=== PATIENT | male | born 1945 | race Caucasian/White ===

== ENCOUNTER 2017-03-22 18:20 | Inpatient (IN) | payer MEDICARE ==
[2017-03-22 20:16] VITALS: BP 119/86
[2017-03-22] MEDS ORDERED: Magnesium Hydroxide (MOM) 30 mL UDC PO PRN (20:18)
[2017-03-22] MEDS ORDERED: Maalox 30 mL Cup PO PRN (20:18)
[2017-03-23] MEDS: Multivitamin Tab PO SCH (09:13)
--- NOTE | 2017-03-23 22:32 | History & Physical ---
ADMIT DATE: 03/22/2017 REASON FOR ADMISSION: Psychiatric disorder. HISTORY OF PRESENT ILLNESS: This is a 71-year-old male, admitted to [facility] for underlying psychiatric illness by Dr. Vasquez. Dr. Vasquez requested medical H and P on this patient. The patient is complaining of the right groin area pain and swelling noticed for the past few weeks. Denies any nausea, vomiting, abdominal pain. No fever, no chills, no chest pain, no shortness of breath or other complaints. PAST MEDICAL HISTORY: The patient has a pacemaker in the past. PAST SURGICAL HISTORY: No significant past surgical history reported. SOCIAL HISTORY: The patient denies any alcohol, tobacco, or street drug use. CURRENT MEDICATIONS: As per the medication reconciliation is reviewed. ALLERGIES: No known drug allergies reported. REVIEW OF SYSTEMS: Right area groin pain. No fever, no chills. No headache, no chest pain, no shortness of breath, dizziness, palpitations or any other complaints. PHYSICAL EXAMINATION: VITAL SIGNS: Temperature 97.8, pulse 86, respirations 20, blood pressure 132/67. HEART: S1, S2 normal. LUNGS: Clear to auscultation. ABDOMEN: Soft, nontender. GENITOURINARY: Right inguinal hernia noted. NEUROLOGIC: The patient is awake, but somewhat confused, grossly nonfocal, moves all extremities, follows commands. AVAILABLE LABORATORY DATA: As per ____. ASSESSMENT: 1. Right inguinal hernia. 2. Pacemaker in place. 3. Psychiatric disorder. PLAN: We will obtain surgical consult for further evaluation of underlying inguinal hernia, Motrin will be given as needed for pain. Psych ____ per psychiatrist. The patient's condition ____ nursing staff. Thank you, Dr. Vasquez, for allowing me to participate in the care of this patient. JOB# [id number]
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
[2017-03-24] MEDS: Multivitamin Tab PO SCH (08:57)
--- NOTE | 2017-03-24 20:15 | Admit Criteria Form ---
Admit Criteria Forms - Admit Criteria Diagnosis: PSYCHIATRIC DISORDERS (Place 'X' for any and all applicable criteria): Ongoing inpatient care may be needed for 1 or more of the following(1)(2)(3)(4)( 6)(7)(8): [ ]I. Danger to self or others not manageable at lower level of care. [ ]II. Grave disability (eg, inability to perform self care necessary at lower level of care) [ ]III. Agitation or inappropriate behavior interfering with care for primary condition (eg, attempting to discontinue lines or drains prematurely, unable to cooperate with respiratory care) [X ]IV. Severe disability or disorder indicated by ALL of the following: [X ]a) Severe behavioral health disorder-related symptoms or condition indicated by 1 or more of the following: [ X]i) Severe problem with cognition, memory, judgment, or impulse control [X ]ii) Severe clinical manifestations (eg, hallucinations , delusions, other acute psychotic symptoms, lambert, extreme agitation or anxiety) [X ]b) Patient management at lower level of care is not feasible until acute intervention or modification is initiated. Extended stay beyond goal length of stay for the primary condition may be needed until ALLof the following are present(1)(2)(3)(4)(722)(23): [ ]a) Danger to self or others is absent or manageable at lower level of care [ ]b) Behavior crisis management, including physical or chemical restraints, is required and is not available at a lower level of care. [ ]c) Behavioral symptoms (e.g., agitation, somnolence, inappropriate behavior) are present, and are not manageable at a lower level of care. [ ]d) Patient cannot understand follow-up treatment and crisis plan. [ ]e) Provider and supports are sufficiently available at lower level of care. [ ]f) Patient can participate (e.g., verify absence of plan for harm) and is in needed of monitoring. The original [facility] content created by [facility] has been revised. The portions of the content which have been revised are identified through the use of italic text or in bold, and [facility] has neither reviewed nor approved the modified material. All other unmodified content is copyright [facility]. Please see references footnoted in the original [facility] edition 2017 Admit Criteria Met?: Yes
[2017-03-25] MEDS: Multivitamin Tab PO SCH (08:33)
--- NOTE | 2017-03-25 20:23 | Progress Notes ---
DATE: 03/25/2017 SUBJECTIVE: Chart reviewed and the patient interviewed. Also discussed the patient's condition with the staff and reviewed records and labs. The patient is still easily agitated and he is still in irritable and angry mood. The patient also still needs redirections. The patient also still has episodes of complaining of inguinal pain and the patient was evaluated by the surgeon and he will eventually need hernia surgery, but it will be postponed for the time being. The patient also is restless and he still needs lots of monitoring and because of confusion. Otherwise, the patient is compliant with taking his medications with no side effects of medications. ASSESSMENT: The patient is still psychotic and confused and needs close monitoring. TREATMENT PLAN: We will continue monitoring his behavior closely. Also, continue Seroquel in a dose of 25 mg twice a day and we will adjust the dose. Also, we will follow up with the surgeon to evaluate the need of surgery at the time being or it can be postponed. [facility]# [id number]
[2017-03-26] MEDS: Multivitamin Tab PO SCH (08:16)
--- NOTE | 2017-03-26 11:13 | History & Physical ---
ADMIT DATE: 03/25/2017 REFERRING PHYSICIAN: Dr. Vasquez. REASON FOR CONSULTATION: Right inguinal hernia. Thank you for referring this patient to me. This patient's deferred because of complaint of right inguinal pain. This apparently has been going on for a few weeks. The patient is admitted in [facility] for psychotic behavior, confusion. PHYSICAL EXAMINATION: GENERAL: Shows a large right inguinal hernia, which is reducible. It is tender. There is no incarceration present. IMPRESSION: Right inguinal hernia, reducible. RECOMMENDATIONS: When cleared by psychiatrist, we will schedule for surgery. JOB# [id number]
--- NOTE | 2017-03-26 21:50 | Progress Notes ---
DATE: 03/26/2017 SUBJECTIVE: Chart reviewed and the patient interviewed. Also, discussed the patient's condition with the staff and reviewed records and labs. The patient remains confused. Also, still have episodes of agitation and irritability. The patient also is still complaining of pain in the inguinal area and he is supposed to have hernia surgery. He also is still forgetful and still needs lots of redirections. Otherwise, the patient is compliant with taking his medications with no side effects of medications. ASSESSMENT: The patient is still psychotic and need close monitoring. TREATMENT PLAN: We will continue monitoring his behavior and condition closely. Also, continue Seroquel 25 mg twice a day and we will continue to follow up closely. [facility]# [id number]
[2017-03-27] MEDS: Multivitamin Tab PO SCH (08:40)
--- NOTE | 2017-03-27 12:15 | General Progress Note ---
Subjective - Review of Systems Service Date: 03/27/17 Events since last encounter: await Psych clearance for hernia repair Objective - Physical Exam Vitals and I&O: Vital Signs Temp 98.2 F 03/27/17 06:17 Pulse 61 03/27/17 10:50 Resp 20 03/27/17 10:50 BP 122/73 03/27/17 06:17 Pulse Ox 99 03/27/17 06:17 Intake & Output 03/26/17 03/27/17 03/27/17 18:59 06:59 18:59 Intake Total 2200 Balance 2200 Intake: Oral 2200 Other: # Voids 4 # Bowel Movements 0 Stool Characteristics Formed Active Medications: Current Medications Acetaminophen (Tylenol) 650 mg PO Q4HR PRN PRN Reason: Mild Pain / Temp above 100 Stop: 05/21/17 20:17 Al Hydrox/Mg Hydrox/Simethicone (Maalox) 30 ml PO Q4HR PRN PRN Reason: GI DISTRESS Stop: 05/21/17 20:17 Ibuprofen (Motrin) 800 mg PO Q8HR PRN PRN Reason: Severe Pain Stop: 05/22/17 17:29 Last Admin: 03/27/17 09:02 Dose: 800 mg Lorazepam (Ativan) 0.5 mg PO Q4HR PRN; Protocol PRN Reason: Anxiety Stop: 04/21/17 20:17 Last Admin: 03/27/17 09:02 Dose: 0.5 mg Magnesium Hydroxide (Milk Of Magnesia) 30 ml PO HS PRN PRN Reason: Constipation Multivitamins/Vitamin C (Theragran) 1 tab PO DAILY JUWAN Stop: 05/22/17 08:59 Last Admin: 03/27/17 08:40 Dose: 1 tab Quetiapine Fumarate (Seroquel) 25 mg PO BID JUWAN PRN Reason: Protocol Stop: 05/22/17 16:59 Last Admin: 03/27/17 08:41 Dose: 25 mg Zolpidem Tartrate (Ambien) 5 mg PO HS PRN PRN Reason: Insomnia Stop: 05/21/17 20:17
--- NOTE | 2017-03-28 03:17 | Progress Notes ---
DATE: 03/27/2017 SUBJECTIVE: Chart reviewed and the patient interviewed. Also discussed the patient's condition with the staff and reviewed records and labs. The patient remains confused and he still has episodes of agitation and irritability. The patient also is still suspicious and paranoid. Increased agitation when staff tries to help him with his ADLs. Otherwise, the patient continued to comply with taking his medications and no side effects of Seroquel. Dr. Shay wants to have hernia surgery and it is not clear if this is an emergency situation since patient psychologically not ready and is still confused and paranoid and we will discuss that with ____ for further recommendations. ASSESSMENT: The patient is still confused and psychotic. TREATMENT PLAN: We will continue monitoring his behavior and his condition closely and we will continue to follow up and work on his confusion. JOB# [id number]
[2017-03-28] MEDS: Multivitamin Tab PO SCH (09:16)
--- NOTE | 2017-03-29 03:50 | Progress Notes ---
DATE: 03/28/2017 SUBJECTIVE: Chart reviewed and the patient interviewed. Also, discussed the patient's condition with the staff and reviewed records and labs. The patient is still anxious and confused and guarded. The patient also is still not sure about the surgery and he has difficulty making decisions in regard to his new surgery. The patient also is still agitated and has episodes of irritability and anger. Otherwise, the patient continued to comply with taking his medications with no side effects of medications. ASSESSMENT: The patient is still psychotic. TREATMENT PLAN: We will continue monitoring his behavior and his condition closely. Also, we will increase Seroquel to 37.5 mg twice a day and we will continue to follow up. [facility]# [id number]
--- NOTE | 2017-03-29 08:03 | Progress Notes ---
DATE: 03/29/2017 SUBJECTIVE: Chart reviewed and the patient interviewed. Also discussed the patient's condition with the staff and reviewed records and labs. The patient remains confused and he still has periods of anger and irritability. The patient also is still agitated and he still needs lots of redirections. The patient also is forgetful and he has difficulty making decisions. Otherwise, the patient is easier to redirect him and more compliant with taking his medications, but he is still getting episodes of aggressive . The patient also is still wandering around the facility and entering other patients rooms. ASSESSMENT: The patient is still confused and is agitated. TREATMENT PLAN: We will continue to monitor his behavior and his condition closely. Also yesterday I increased the Seroquel to 37.5 mg twice a day. We will continue same dose and we will continue to followup. JOB# [id number]
[2017-03-29] MEDS: Multivitamin Tab PO SCH (08:42)
--- NOTE | 2017-03-29 20:10 | General Progress Note ---
Subjective - Review of Systems Service Date: 03/28/17 Subjective: Late entry patient seen and examined denied any complaints Objective - Physical Exam Vitals and I&O: Vital Signs Temp 98.2 F 03/29/17 14:00 Pulse 80 03/29/17 14:00 Resp 18 03/29/17 14:00 BP 122/70 03/29/17 14:00 Pulse Ox 97 03/29/17 14:00 Intake & Output 03/29/17 03/29/17 03/30/17 06:59 18:59 06:59 Intake Total 240 1000 Balance 240 1000 Weight (lbs) 77.383 kg Intake: Oral 240 1000 Other: # Voids 1 3 # Bowel Movements 0 1 Active Medications: Current Medications Acetaminophen (Tylenol) 650 mg PO Q4HR PRN PRN Reason: Mild Pain / Temp above 100 Stop: 05/21/17 20:17 Al Hydrox/Mg Hydrox/Simethicone (Maalox) 30 ml PO Q4HR PRN PRN Reason: GI DISTRESS Stop: 05/21/17 20:17 Ibuprofen (Motrin) 800 mg PO Q8HR PRN PRN Reason: Severe Pain Stop: 05/22/17 17:29 Last Admin: 03/29/17 08:41 Dose: 800 mg Lorazepam (Ativan) 0.5 mg PO Q4HR PRN; Protocol PRN Reason: Anxiety Stop: 04/21/17 20:17 Last Admin: 03/27/17 09:02 Dose: 0.5 mg Magnesium Hydroxide (Milk Of Magnesia) 30 ml PO HS PRN PRN Reason: Constipation Multivitamins/Vitamin C (Theragran) 1 tab PO DAILY JUWAN Stop: 05/22/17 08:59 Last Admin: 03/29/17 08:42 Dose: 1 tab Quetiapine Fumarate (Seroquel) 37.5 mg PO BID JUWAN PRN Reason: Protocol Stop: 05/22/17 16:59 Last Admin: 03/29/17 16:07 Dose: 37.5 mg Zolpidem Tartrate (Ambien) 5 mg PO HS PRN PRN Reason: Insomnia Stop: 05/21/17 20:17 Cardiovascular: Regular rate Lungs: Clear to auscultation Assessment/Plan - Assessment Assessment: Right Inguinal hernia Psych disorder - Plan Plan: Per Surgery right inguinal hernia repair once stable mentally Continue current treatment Psych management per psych Nutritional Asmnt/Malnutr-PDOC - Dietary Evaluation Malnutrition Findings (Please click <Entered> for more info): Nutritional Asmnt/Malnutrition Start: 03/29/17 15: 57 Text: Status: Complete Freq: Document 03/29/17 15:57 GSUN (Rec: 03/29/17 16:07 GSUN [id number]) Nutritional Asmnt/Malnutrition Patient General Information Nutritional Screening Diagnosis Diagnosis Chronic paranoid schizophrenia with acute exacerbation Pertinent Medical Hx/Surgical Hx Right inguinal hernia, pacemaker, hx schizophrenia Subjective Information 71 year old male. Pt is able to ambulate around unit and eats in rec room. Observed pt finishing lunc in rec room, no difficulties noted. 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 Spoke to pt in pt's room. Bedscale properly calibrated with pt off, CBW 170.6lb. Pt was talkative and pleasant, however questionable historian. Most teeth intact, denied difficulties eating. Avg PO intake ~95% of meals sicne adm, meeting nutritional needs. Current Diet Order/ Nutrition Support Regular Pertinent Medications Maalox, MOM, Theragran, Seroquel Pertinent Labs No lab draws. Nutritional Hx/Data Height 1.7 m Height (Calculated Centimeters) 170.2 Current Weight (lbs) 77.383 kg Weight (Calculated Kilograms) 77.4 Weight (Calculated Grams) 92491.9 Usual body Weight (lbs) 160 [place] Body Weight 148 Weight Status Overweight GI Symptoms Food Allergies No Skin Integrity/Comment: Jonathan 21. Skin intact. Current %PO Good (75-100%) Estimated Nutritional Goals BEE in Kcals: Using Current wt Calories/Kcals/Kg CBW 170.6lb/77.5kg ( appropriate BMI for age, pt is ambulatory) Kcals Calculated 1938-2325kcal (25-30kcal/kg) Protein Calculated 78g (1g/kg) Fluid: ml 1938-2325ml (1ml/kcal) Nutritional Problem 1. Problem Problem No nturitional problem at this time. Intervention/Recommendation Comments 1. Continue with current diet order. Avg PO intake is adequate. 2. Discussed healthy weight for age/height. Pt understood. Expected Outcomes/Goals Expected Outcomes/Goals 1. PO intake continue to meet at least 75% of estimated nutritional needs.
[2017-03-30] MEDS: Multivitamin Tab PO SCH (08:45)
--- NOTE | 2017-03-30 22:39 | Progress Notes ---
DATE: 03/30/2017 SUBJECTIVE: Chart reviewed and the patient interviewed. Also discussed the patient's condition with the staff and reviewed records and labs. The patient is still confused and is still anxious. The patient also is still forgetful and irritable and gets agitated easily. The patient also needs lots of redirection and is still guarded. Otherwise, the patient continued to comply with taking his medications with no side effects of medications. ASSESSMENT: The patient is less psychotic and confused. TREATMENT PLAN: Continue monitoring his behavior and his condition closely. Also, continue to work on placement issue and working on discharge plans. JOB# [id number]
[2017-03-31] MEDS: Multivitamin Tab PO SCH (09:12)
--- NOTE | 2017-03-31 23:59 | Progress Notes ---
DATE: 03/31/2017 SUBJECTIVE: Chart reviewed and the patient interviewed. Also, discussed the patient's condition with the staff and reviewed records and labs. The patient is still confused and restless as he is easily agitated. The patient also still has episodes of irritability. He also is still having difficulty following directions. The patient also is unable to carry coherent conversation. ASSESSMENT: The patient is still psychotic. TREATMENT PLAN: We will continue monitoring his behavior closely. Also, we will change Seroquel to be given at dose of 25 mg in the morning and 50 mg at bedtime. We will continue working on his irritability and his anger, and we will continue to follow up. JOB# [id number]
[2017-04-01] MEDS: Multivitamin Tab PO SCH (08:10)
--- NOTE | 2017-04-01 19:53 | Progress Notes ---
DATE: 04/01/2017 SUBJECTIVE: The patient seen, chart reviewed, discussed with staff. The patient is currently in the hospital confused, states he is here because "of my ___stomach__." He originally came to the hospital under the care of Dr. Vasquez, he was wandering in the streets, disoriented, walking in front of cars, made allegations, history of schizophrenia, confused. The patient remains confused, disoriented, currently still gravely disabled, unable to give me a plan for basic food, clothing, and care home. He continues to state he has 18 children, making bizarre allegations, sleeping fairly well, eating with prompting, ADLs with prompting. Medications reviewed. Labs were reviewed. The patient is currently on Seroquel. ASSESSMENT: The patient remains symptomatic, confused with psychosis, grave disability, disorganized thought processes. PLAN: Continue to monitor. The patient remains symptomatic, continued safety concerns. We will increase the Seroquel today. [facility]# [id number]
[2017-04-02] MEDS: Multivitamin Tab PO SCH (08:09)
--- NOTE | 2017-04-02 21:14 | Progress Notes ---
DATE: 04/02/2017 SUBJECTIVE: The patient was seen, chart reviewed, and discussed with staff. The patient is currently in the hospital, anxious, confused, and forgetful. He states he lives in . Still with some evidence of psychosis, still rambling, tangential, difficult to redirect at times, but he has been calmer, more cooperative, no agitation, no aggressive behaviors noted. The patient is under the care of Dr. Vasquez, still noted to be angry at times, impulsive, unable to really verbalize the basic plans for food, clothing, and skilled nursing. Continued concerns about his safety do persist. Medications were reviewed. He is currently on a regimen of Seroquel 75 mg at night. Still he is experiencing some symptoms. No side effects noted. However, no EPS. PLAN: We will continue to monitor. The patient with continued evidence of psychosis. Increase Seroquel to 100 mg at night. Continue to monitor. JOB# [id number]
[2017-04-03] MEDS: Multivitamin Tab PO SCH (08:24)
--- NOTE | 2017-04-04 03:06 | Progress Notes ---
DATE: 04/03/[address] Vasquez. Case was discussed with staff of the patient, reviewed records. This is a 71-year-old male who was admitted on 03/25/2017, came from [place] [facility]. He was placed on hold by [place]. The patient was wandering in the street and he was disoriented, walking in front of cars. 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 He was complaining of slag expander that some changes happened in the prison where he lives. The patient has a history of schizophrenia, has been paranoid, confused, has not been taking his medication. The patient is unpredictable and impulsive. DIAGNOSES: Chronic paranoid schizophrenia with acute exacerbation. The patient has been compliant with the medication with no side effects. He is currently on Seroquel 100 mg at bedtime. No sedation, no nausea, no extrapyramidal symptoms. We will continue to work with the patient in group therapy, milieu therapy, and adjust the medication as needed. The patient also was scheduled to have surgery for inguinal hernia on 03/27/2017 and is not clear to me if this was done or not. JOB# [id number]
[2017-04-04] MEDS: Multivitamin Tab PO SCH (09:01)
[2017-04-05] MEDS: Multivitamin Tab PO SCH (08:16)
== END 2017-04-05 13:20 | DRG 885 ==
LOC: GERO 18:20
PROVIDERS: ADMIT Psychiatry & Neurology Psychiatry; ATTEND Psychiatry & Neurology Psychiatry
DX: F20.0 Paranoid schizophrenia (principal); F29 Unspecified psychosis not due to a substance or known physiological condition; K40.90 Unilateral inguinal hernia, without obstruction or gangrene, not specified as recurrent; Z95.0 Presence of cardiac pacemaker
CPT/HCPCS: 90899; 93005; G0410; Z7610